=== PATIENT | male | born 1990 | race Caucasian/White ===

== ENCOUNTER 2018-04-03 22:07 | Emergency (ER) | payer SELFPAY ==
[2018-04-03 22:40] VITALS: BP 125/74
[2018-04-03 23:29] LABS: ABSOLUTE BASOPHILS # (AUTO) 0.1 10^3/uL (0.0-0.2); ABSOLUTE EOSINOPHILS # (AUTO) 0.2 10^3/uL (0.0-0.6); ABSOLUTE LYMPHOCYTES (AUTO) 3.1 10^3/uL (0.5-4.7); ABSOLUTE MONOCYTES (AUTO) 0.6 10^3/uL (0.1-1.4); ABSOLUTE NEUT (AUTO) 5.3 10^3/uL (1.7-8.2); BASOPHILS % (AUTO) 0.8 % (0-2); HEMATOCRIT 43.7 % (37.9-51.0); HEMOGLOBIN 15.5 g/dL (13.5-17.0); LYMPHOCYTES % (AUTO) 33.4 % (13-45); MEAN CORPUSCULAR HEMOGLOBIN 31.3 pg (27.0-33.4); MEAN CORPUSCULAR HGB CONC 35.5 g/dL (32.0-36.0); MEAN CORPUSCULAR VOLUME 88 fl (80-97); MONOCYTES % (AUTO) 6.7 % (3-13); PLATELET COUNT 202 10^3/uL (150-450); RED BLOOD COUNT 4.96 10^6/uL (4.35-5.55); RED CELL DISTRIBUTION WIDTH 12.8 % (11.5-14.0); SEGMENTED NEUTROPHILS % (AUTO) 57.1 % (42-78); TOTAL CELLS COUNTED % (AUTO) 100 %; WHITE BLOOD COUNT 9.3 10^3/uL (4.0-10.5)
[2018-04-03 23:30] LABS: APPEARANCE,URINE CLEAR; BILIRUBIN,URINE NEGATIVE (NEGATIVE); COLOR,URINE YELLOW; GLUCOSE, URINE NEGATIVE (NEGATIVE); KETONES,URINE NEGATIVE (NEGATIVE); LEUKOCYTE ESTERASE,URINE NEGATIVE (NEGATIVE); NITRITE,URINE NEGATIVE (NEGATIVE); PROTEIN,URINE NEGATIVE (NEGATIVE); URINE SPECIFIC GRAVITY 1.018; UROBILINOGEN,URINE NEGATIVE mg/dL (<2.0)
[2018-04-03 23:47] LABS: ALANINE AMINOTRANSFERASE 28 U/L (21-72); ALBUMIN 4.4 g/dL (3.5-5.0); ALKALINE PHOSPHATASE 73 U/L (38-126); ANION GAP 10 (5-19); ASPARTATE AMINO TRANSFERASE 24 U/L (17-59); BILIRUBIN,DIRECT 0.3 mg/dL (0.0-0.4); BILIRUBIN,TOTAL 0.5 mg/dL (0.2-1.3); BLOOD UREA NITROGEN 18 mg/dL (7-20); CALCIUM 9.8 mg/dL (8.4-10.2); CARBON DIOXIDE 28 mmol/L (22-30); CHLORIDE 106 mmol/L (98-107); GLUCOSE 107 mg/dL (75-110); LIPASE 84.8 U/L (23-300); POTASSIUM 3.8 mmol/L (3.6-5.0); SODIUM 143.8 mmol/L (137-145); TOTAL PROTEIN 7.3 g/dL (6.3-8.2)
== END 2018-04-04 01:00 | disposition left against medical advice (07) ==
LOC: ER 22:07
DX: Z53.21 Procedure and treatment not carried out due to patient leaving prior to being seen by health care provider (principal)
CPT/HCPCS: 36415; 80053; 81001; 83690; 85025

== ENCOUNTER 2018-04-06 22:16 | Emergency (ER) | payer SELFPAY ==
[2018-04-06] MEDS ORDERED: KETOROLAC TROMETHAMINE INJ/PF 30 MG/1 ML SDV IV ONE (22:48)
--- NOTE | 2018-04-06 22:50 | ER Document Report ---
ED GI/ - General Chief Complaint: Abdominal Pain Stated Complaint: FLANK PAIN Time Seen by Provider: 04/06/18 22:42 Notes: Patient is a 28-year-old male who comes emergency department for chief complaint of pain in his right lower abdomen. He states that he felt a popping sensation 2 nights ago, has had continuous pain in that location since, worse with movement, states that he had some loss of appetite but denies nausea or vomiting. Reports normal bowel movement within the past day. Denies fever or chills. Denies any surgeries or daily medications, denies any medical history. He smokes, drinks alcohol occasionally, uses marijuana. TRAVEL OUTSIDE OF THE [place] IN LAST 30 DAYS: No - Related Data Allergies/Adverse Reactions: No Known Allergies Allergy (Unverified 03/02/12 08:09) Past Medical History - General Information source: Patient - Social History Smoking Status: Current Every Day Smoker Smoking Education Provided: Yes - <3 min Frequency of alcohol use: Occasional Drug Abuse: Marijuana Lives with: Alone Family History: Reviewed & Not Pertinent Surgical Hx: Negative - Immunizations Hx Diphtheria, Pertussis, Tetanus Vaccination: Yes Review of Systems - Review of Systems Constitutional: No symptoms reported EENT: No symptoms reported Cardiovascular: No symptoms reported Respiratory: No symptoms reported Gastrointestinal: See HPI Genitourinary: No symptoms reported Male Genitourinary: No symptoms reported Musculoskeletal: No symptoms reported Skin: No symptoms reported Hematologic/Lymphatic: No symptoms reported Neurological/Psychological: No symptoms reported Physical Exam - Vital signs Vitals: Temp Pulse Resp BP Pulse Ox 99.0 F 80 18 121/64 96 04/06/18 22:24 04/06/18 22:24 04/06/18 22:24 04/06/18 22:24 04/06/18 22:24 - Notes Notes: GENERAL: Alert, interacts well. No acute distress. HEAD: Normocephalic, atraumatic. EYES: Pupils equal, round, and reactive to light. Extraocular movements intact. ENT: Oral mucosa moist, tongue midline. NECK: Full range of motion. Supple. Trachea midline. LUNGS: Clear to auscultation bilaterally, no wheezes, rales, or rhonchi. No respiratory distress. HEART: Regular rate and rhythm. No murmur ABDOMEN: Tenderness in the mid to lower right quadrant of the abdomen, this is reproducible, remaining abdomen is soft and benign EXTREMITIES: Moves all 4 extremities spontaneously. No edema, normal radial and dorsalis pedis pulses bilaterally. No cyanosis. BACK: no cervical, thoracic, lumbar midline tenderness. No saddle anesthesia, normal distal neurovascular exam. NEUROLOGICAL: Alert and oriented x3. Normal speech. [cranial nerves II through XII grossly intact]. PSYCH: Normal affect, normal mood. SKIN: Warm, dry, normal turgor. No rashes or lesions noted. Course - Re-evaluation Re-evalutation: Patient is well-appearing on exam. He does have lower abdominal tenderness specifically in the right lower abdomen, no overt abnormality including hernia noted, tenderness is reproducible. As result CAT scan will be performed with oral and IV contrast. CBC is unremarkable, chemistry shows elevated creatinine 1.53, otherwise unremarkable, urine does not show hematuria or other abnormality. Patient states that he has been drinking "almost exclusively soda", patient given IV fluids. CT showing bilateral small inguinal hernias with no incarceration or obstruction , normal appendix. This is consistent with patient's description of events and his symptoms as well as his exam. Examination does not suggest acute abdomen, patient is improved from before. Patient provided with copy of his report, referral, discussed smoking cessation, discussed follow-up, discussed return precautions. Patient states understanding and agreement with plan. - Vital Signs Vital signs: Temp Pulse Resp BP Pulse Ox 98.5 F 62 18 118/75 100 04/07/18 03:33 04/07/18 03:33 04/07/18 03:33 04/07/18 03:33 04/07/18 03:33 - Laboratory Result Diagrams: 04/06/18 22:35 04/06/18 22:35 Laboratory results interpreted by me: 04/06/18 22:35 Sodium 145.6 H Creatinine 1.53 H Est GFR (Non-Af Amer) 54 L Glucose 67 L Discharge - Discharge Clinical Impression: Abdominal pain Qualifiers: Abdominal location: lower abdomen, unspecified Qualified Code(s): R10.30 - Lower abdominal pain, unspecified Condition: Stable Disposition: HOME, SELF-CARE Additional Instructions: Your imaging and examination indicate your pain is from hernia, you actually have 2 small hernias, one on each side and the groin areas. Consider abdominal binder for lifting, stop smoking, follow-up with surgical referral for additional management. Your kidney functioning is a little abnormal today, you were given IV fluids, this needs to be rechecked by primary care. Improve hydration. Return if you worsen including severe pain, vomiting, fever, a hard swollen area in your groin, or any other concerning symptoms. Forms: Return to Work Referrals: [facility] [Provider Group] - Follow up as needed
[2018-04-06 22:53] LABS: ABSOLUTE BASOPHILS # (AUTO) 0.1 10^3/uL (0.0-0.2); ABSOLUTE EOSINOPHILS # (AUTO) 0.1 10^3/uL (0.0-0.6); ABSOLUTE LYMPHOCYTES (AUTO) 3.1 10^3/uL (0.5-4.7); ABSOLUTE MONOCYTES (AUTO) 0.7 10^3/uL (0.1-1.4); ABSOLUTE NEUT (AUTO) 5.9 10^3/uL (1.7-8.2); BASOPHILS % (AUTO) 0.7 % (0-2); EOSINOPHILS % (AUTO) 1.1 % (0-6); HEMATOCRIT 41.7 % (37.9-51.0); HEMOGLOBIN 14.9 g/dL (13.5-17.0); LYMPHOCYTES % (AUTO) 31.5 % (13-45); MEAN CORPUSCULAR HEMOGLOBIN 31.5 pg (27.0-33.4); MEAN CORPUSCULAR HGB CONC 35.7 g/dL (32.0-36.0); MEAN CORPUSCULAR VOLUME 88 fl (80-97); MONOCYTES % (AUTO) 7.1 % (3-13); PLATELET COUNT 197 10^3/uL (150-450); RED BLOOD COUNT 4.72 10^6/uL (4.35-5.55); RED CELL DISTRIBUTION WIDTH 12.6 % (11.5-14.0); SEGMENTED NEUTROPHILS % (AUTO) 59.6 % (42-78); TOTAL CELLS COUNTED % (AUTO) 100 %
[2018-04-06 22:59] LABS: APPEARANCE,URINE SLIGHTLY-CLOUDY; BILIRUBIN,URINE NEGATIVE (NEGATIVE); COLOR,URINE YELLOW; GLUCOSE, URINE NEGATIVE (NEGATIVE); KETONES,URINE NEGATIVE (NEGATIVE); LEUKOCYTE ESTERASE,URINE NEGATIVE (NEGATIVE); NITRITE,URINE NEGATIVE (NEGATIVE); PROTEIN,URINE NEGATIVE (NEGATIVE); URINE SPECIFIC GRAVITY 1.017; UROBILINOGEN,URINE NEGATIVE mg/dL (<2.0)
[2018-04-06 23:09] LABS: ALANINE AMINOTRANSFERASE 30 U/L (21-72); ALBUMIN 4.3 g/dL (3.5-5.0); ALKALINE PHOSPHATASE 53 U/L (38-126); ANION GAP 12 (5-19); ASPARTATE AMINO TRANSFERASE 27 U/L (17-59); BILIRUBIN,DIRECT 0.3 mg/dL (0.0-0.4); BILIRUBIN,TOTAL 0.6 mg/dL (0.2-1.3); BLOOD UREA NITROGEN 16 mg/dL (7-20); CALCIUM 9.5 mg/dL (8.4-10.2); CARBON DIOXIDE 27 mmol/L (22-30); CHLORIDE 107 mmol/L (98-107); GLUCOSE 67 mg/dL (75-110); LIPASE 62.7 U/L (23-300); SODIUM 145.6 mmol/L (137-145); TOTAL PROTEIN 7.1 g/dL (6.3-8.2)
--- NOTE | 2018-04-07 02:38 | RADIOLOGY REPORT (SQ) ---
EXAM DESCRIPTION: CT ABDOMEN PELVIS WITH IV CONTRAST COMPLETED DATE/TME: 04/07/2018 00:00 CLINICAL HISTORY: 28 years Male, RLQ pain Comparison: None. Technique: IV contrast and oral. Coronal and sagittal reformat. This exam was performed according to our departmental dose-optimization program, which includes automated exposure control, adjustment of the mA and/or kV according to patient size and/or use of iterative reconstruction technique.[facility]: Dose Right [facility]: CareDose [facility]: Dose Right [facility]: Teradose 4D [facility]: [employer] LIMITATIONS: None Findings: No ascites. Normal appendix. Small bilateral inguinal fat only hernia. Subcentimeter, likely benign left renal cysts. Inferior thorax, liver, gallbladder, pancreas, spleen, adrenals, renal system, gastrointestinal tract, pelvic organs, lymphatics, vasculature, and musculoskeleton appear otherwise unremarkable. IMPRESSION: No acute findings.
[2018-04-07] MEDS ORDERED: NORMAL SALINE 1000 ML 1,000 ML IV ONE (02:42)
[2018-04-07 03:34] VITALS: BP 118/75
== END 2018-04-07 03:35 | disposition home or self-care (01) ==
LOC: ER 22:16
DX: R10.31 Right lower quadrant pain (principal); R63.0 Anorexia; F17.200 Nicotine dependence, unspecified, uncomplicated
CPT/HCPCS: 99284; 96361; 96374; 36415; 83690; 85025; 80053; 81001; 74177; J1885; J7030

== ENCOUNTER 2018-06-12 10:17 | Emergency (ER) | payer SELFPAY ==
--- NOTE | 2018-06-12 10:36 | ER Document Report ---
ED Neuro Symptoms/Deficit - General Chief Complaint: Numbness Stated Complaint: CHEST PAIN Time Seen by Provider: 06/12/18 10:33 TRAVEL OUTSIDE OF THE [place] IN LAST 30 DAYS: No - Related Data Allergies/Adverse Reactions: No Known Allergies Allergy (Verified 06/12/18 10:17) Past Medical History - Social History Family History: Reviewed & Not Pertinent Renal/ Medical History: Denies: Hx Peritoneal Dialysis - Immunizations Hx Diphtheria, Pertussis, Tetanus Vaccination: Yes Physical Exam - Vital signs Vitals: Temp Pulse Resp BP Pulse Ox 98.1 F 96 16 142/78 H 98 06/12/18 10:25 06/12/18 10:25 06/12/18 10:25 06/12/18 10:25 06/12/18 10:25 Course - Vital Signs Vital signs: Temp Pulse Resp BP Pulse Ox 98.1 F 96 16 142/78 H 98 06/12/18 10:25 06/12/18 10:25 06/12/18 10:25 06/12/18 10:25 06/12/18 10:25
--- NOTE | 2018-06-12 10:38 | ER Document Report ---
ED Neuro Symptoms/Deficit - General Chief Complaint: Numbness Stated Complaint: CHEST PAIN Time Seen by Provider: 06/12/18 10:33 Notes: 28-year-old male to the emergency department with his sister. Sister states that he is altered this morning. Complaining of headache. Facial numbness. Extremity numbness. Not acting right. Denies any drug use other than "smoking weed man". States that he takes a lot of vitamins. Has been having headaches. Seems to be getting worse. Had some recent dental issues and was on some antibiotics but otherwise denies any other symptoms. Patient is sitting in chair almost falling over. Seems very sleepy. Sister is present with the patient and is crying and seems very disturbed by his presentation. Apparently this is not his baseline mental status. I have greeted and performed a rapid initial assessment of this patient. A comprehensive ED assessment and evaluation of the patient, analysis of test results and completion of the medical decision making process will be conducted by additional ED providers. TRAVEL OUTSIDE OF THE [place] IN LAST 30 DAYS: No - Related Data Allergies/Adverse Reactions: No Known Allergies Allergy (Verified 06/12/18 10:17) Past Medical History - Social History Smoking Status: Smoker,Current Status Unk Drug Abuse: Marijuana Family History: Reviewed & Not Pertinent Renal/ Medical History: Denies: Hx Peritoneal Dialysis - Immunizations Hx Diphtheria, Pertussis, Tetanus Vaccination: Yes Physical Exam - Vital signs Vitals: Temp Pulse Resp BP Pulse Ox 98.1 F 96 16 142/78 H 98 06/12/18 10:25 06/12/18 10:06/12/18 10:06/12/18 10:25 06/12/18 10:25 Course - Vital Signs Vital signs: Temp Pulse Resp BP Pulse Ox 98.1 F 96 16 142/78 H 98 06/12/18 10:25 06/12/18 10:25 06/12/18 10:25 06/12/18 10:25 06/12/18 10:25
--- NOTE | 2018-06-12 11:28 | RADIOLOGY REPORT (SQ) ---
EXAM DESCRIPTION: CT HEAD WITHOUT COMPLETED DATE/TIME: 06/12/2018 11:19 am REASON FOR STUDY: altered mental status, headache COMPARISON: None. TECHNIQUE: Axial images acquired through the brain without intravenous contrast. Images reviewed wi th bone, brain and subdural windows. Additional sagittal and coronal reconstructions were generated. Images stored on PACS. All CT scanners at this facility use dose modulation, iterative reconstruction, and/or weight based d osing when appropriate to reduce radiation dose to as low as reasonably achievable (ALARA). [facility]: Dose Right [facility]: CareDose [facility]: Dose Right [facility]: Teradose 4D [facility]: [email or web address] RADIATION DOSE: CT Rad equipment meets quality standard of care and radiation dose reduction techniq ues were employed. CTDIvol: 53.2 mGy. DLP: 1097 mGy-cm. mGy. LIMITATIONS: None. FINDINGS: VENTRICLES: Normal size and contour. CEREBRUM: No masses. No hemorrhage. No midline shift. No evidence for acute infarction. Normal gra y/white matter differentiation. No areas of low density in the white matter. CEREBELLUM: No masses. No hemorrhage. No alteration of density. No evidence for acute infarction. EXTRAAXIAL SPACES: No fluid collections. No masses. ORBITS AND GLOBE: No intra- or extraconal masses. Normal contour of globe without masses. CALVARIUM: No fracture. PARANASAL SINUSES: No fluid or mucosal thickening. SOFT TISSUES: No mass or hematoma. OTHER: No other significant finding. IMPRESSION: NORMAL BRAIN CT WITHOUT CONTRAST. EVIDENCE OF ACUTE STROKE: NO. COMMENT: Quality ID # [id number]: Final reports with documentation of one or more dose reduction techniques (e.g., Automated exposure control, adjustment of the mA and/or kV according to patient size, use of iterative reconstruction technique) TECHNICAL DOCUMENTATION: JOB ID: [id number] [employer]- All Rights Reserved Reading location - IP/workstation name: [email or web address]
[2018-06-12 11:35] LABS: VENOUS BLOOD BASE EXCESS 1.1 mmol/L; VENOUS BLOOD HCO3 27.4 mmol/L (20-32); VENOUS BLOOD PCO2 49.2 mmHg (35-63); VENOUS BLOOD PH 7.36 (7.30-7.42)
[2018-06-12 11:37] LABS: ABSOLUTE EOSINOPHILS # (AUTO) 0.1 10^3/uL (0.0-0.6); ABSOLUTE LYMPHOCYTES (AUTO) 2.6 10^3/uL (0.5-4.7); ABSOLUTE MONOCYTES (AUTO) 0.6 10^3/uL (0.1-1.4); ABSOLUTE NEUT (AUTO) 6.6 10^3/uL (1.7-8.2); BASOPHILS % (AUTO) 0.3 % (0-2); EOSINOPHILS % (AUTO) 1.4 % (0-6); HEMATOCRIT 44.6 % (37.9-51.0); HEMOGLOBIN 15.7 g/dL (13.5-17.0); LYMPHOCYTES % (AUTO) 26.3 % (13-45); MEAN CORPUSCULAR HEMOGLOBIN 30.9 pg (27.0-33.4); MEAN CORPUSCULAR HGB CONC 35.2 g/dL (32.0-36.0); MEAN CORPUSCULAR VOLUME 88 fl (80-97); MONOCYTES % (AUTO) 5.8 % (3-13); PLATELET COUNT 213 10^3/uL (150-450); RED BLOOD COUNT 5.07 10^6/uL (4.35-5.55); RED CELL DISTRIBUTION WIDTH 12.9 % (11.5-14.0); SEGMENTED NEUTROPHILS % (AUTO) 66.2 % (42-78); TOTAL CELLS COUNTED % (AUTO) 100 %
[2018-06-12] MEDS ORDERED: NORMAL SALINE 1000 ML 1,000 ML IV ONE ×2 (11:41→14:18)
--- NOTE | 2018-06-12 11:45 | ER Document Report ---
ED General - General Mode of Arrival: Ambulatory Information source: Patient TRAVEL OUTSIDE OF THE [place] IN LAST 30 DAYS: No <VENU KHALIL - Last Filed: 06/12/18 12:10> <JULIO CESAR DUARTE - Last Filed: 06/12/18 16:07> - General Chief Complaint: Numbness Stated Complaint: CHEST PAIN Time Seen by Provider: 06/12/18 10:33 Notes: Patient is a 28-year-old male presenting to the emergency department complaining of multiple symptoms. Patient states that he woke up this morning with a headache and states he has been waking up every morning with a headache which she takes Excedrin which makes his headache tolerable. States he woke up this morning earlier than normal and went back to bed because he was tired. He states when he laid down he felt a shock at the back of his head that radiated into back of his body and then his "body went into a panic mode". He states he does not normally have panic attacks. He further complains of mouth and hand numbness and weakness further stating "they do not want to work". He states he took Excedrin this morning so his headache is better at bedside. He denies any fevers. He also mentions left tooth pain which is exacerbated with cough and complains of pain behind his right hear for 1.5 weeks. He further reports having a cough and sinus infection for a while and reports is cough being dry now due to not coughing any sputum or having rhinorrhea. According to triage note, sister was at bedside earlier and was crying due to the patient appearing to be in an altered mental status. (VENU KHALIL) - Related Data Allergies/Adverse Reactions: No Known Allergies Allergy (Verified 06/12/18 10:17) Past Medical History - General Information source: Patient - Social History Smoking Status: Current Every Day Smoker Cigarette use (# per day): Yes Chew tobacco use (# tins/day): No Frequency of alcohol use: Occasional Drug Abuse: Marijuana Family History: Reviewed & Not Pertinent Patient has suicidal ideation: No Patient has homicidal ideation: No - Immunizations Hx Diphtheria, Pertussis, Tetanus Vaccination: Yes <VENU KHALIL - Last Filed: 06/12/18 12:10> Review of Systems - Review of Systems Constitutional: No symptoms reported EENT: See HPI, Dental problem Cardiovascular: No symptoms reported Respiratory: No symptoms reported Gastrointestinal: No symptoms reported Genitourinary: No symptoms reported Male Genitourinary: No symptoms reported Musculoskeletal: See HPI Skin: No symptoms reported Hematologic/Lymphatic: No symptoms reported Neurological/Psychological: See HPI, Weakness, Headaches, Numbness -: Yes All other systems reviewed and negative <SIMRANVENU DARLING - Last Filed: 06/12/18 12:10> Physical Exam <SIMRANVENU DARLING - Last Filed: 06/12/18 12:10> <JULIO CESAR DUARTE - Last Filed: 06/12/18 16:07> - Vital signs Vitals: Temp Pulse Resp BP Pulse Ox 98.1 F 96 16 142/78 H 98 06/12/18 10:25 06/12/18 10:25 06/12/18 10:25 06/12/18 10:25 06/12/18 10:25 - Notes Notes: GENERAL: Appears drowsy, arousable. No acute distress. HEAD: Normocephalic, atraumatic. No frontal tenderness to palpation. No facial weakness or asymmetry. EYES: Pupils equal, round, and reactive to light. Extraocular movements intact. ENT: Oral mucosa moist, tongue midline. Right and left lower third molar appear decayed with holes on the lateral aspect near gum line, tender to percussion, no gum edema. NECK: Full range of motion. Supple. Trachea midline. Able to place chin on chest , no reproducible pain with this movement. Posterior cervical muscles tender to palpation. Bilateral trapezius tender to palpation. LUNGS: Coarse breath sounds and rhonchi with cough. No respiratory distress. HEART: Regular rate and rhythm. No murmurs, gallops, or rubs. ABDOMEN: Soft, non-tender. Non-distended. Bowel sounds present in all 4 quadrants. EXTREMITIES: Moves all 4 extremities spontaneously. Initially had one foot under the other during examination. Able to uncross legs without difficulty. No edema, radial pulses 2/4 bilaterally. No cyanosis. NEUROLOGICAL: Alert and oriented x3. Normal speech. 5/5 presto log operator strength bilaterally. PSYCH: Normal affect, normal mood. SKIN: Warm, dry, normal turgor. No rashes or lesions noted. BACK: No scapular tenderness to palpation. (VENU KHALIL) Course - Laboratory Result Diagrams: 06/12/18 11:08 06/12/18 11:08 <VENU KHALIL - Last Filed: 06/12/18 12:10> - Laboratory Result Diagrams: 06/12/18 11:08 06/12/18 11:08 - Diagnostic Test Radiology reviewed: Image reviewed, Reports reviewed - CT scan of the head is unremarkable. <JULIO CESAR DUARTE - Last Filed: 06/12/18 16:07> - Re-evaluation Re-evalutation: 06/12/18 16:02 The patient recognizes that his urine was very dark and concentrated. He cannot explain that, as he states he drinks plenty of fluids all the time. At this time he states that his whole body feels heavy. 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 When asked why he was awake when the children should be asleep, he said there was a cat there that kept him awake. He also reports that he got back up about 7 AM. I have asked the patient to go home and drink plenty of fluids throughout the day and evening, and get plenty of sleep, then see how he feels, as there is no clear explanation for most of the symptoms he has right now. He still does have reproducible muscle tension type headaches with very tender bilateral posterior cervical muscles and trapezius muscles. There is no nuchal rigidity. (JULIO CESAR DUARTE) - Vital Signs Vital signs: Temp Pulse Resp BP Pulse Ox 98.1 F 88 13 145/81 H 99 06/12/18 10:25 06/12/18 14:42 06/12/18 14:42 06/12/18 14:42 06/12/18 14:42 - Laboratory Laboratory results interpreted by me: 06/12/18 06/12/18 11:08 13:15 Glucose 111 H Urine Ketones TRACE H Urine Ascorbic Acid 40 H Acetaminophen < 10 L Discharge <VENU KHALIL - Last Filed: 06/12/18 12:10> <JULIO CESAR DUARTE - Last Filed: 06/12/18 16:07> - Discharge Clinical Impression: Muscle tension headache, Dehydration Fatigue Qualifiers: Fatigue type: unspecified Qualified Code(s): R53.83 - Other fatigue Condition: Stable Disposition: HOME, SELF-CARE Additional Instructions: There was no clear explanation for your symptoms today except that you do seem to have a muscle tension type headache which is readily reproduced by palpating the posterior cervical neck muscles. Your urine was quite concentrated suggesting that you are not drinking enough fluids, despite, thinking that you have been drinking a lot. You do report that you were up quite late and got very little sleep before getting back up today. At this time, I would recommend that you continue to drink plenty of fluids throughout the day and evening, such that your urine is coming out very clear. Get plenty of sleep today. Follow-up with a primary care provider or return to the emergency room if you are not feeling better after getting plenty of sleep and drinking plenty of fluids. RETURN TO THE EMERGENCY ROOM IF ANY NEW OR WORSENING SYMPTOMS. Forms: Return to Work Scribe Attestation: 06/12/18 12:07 I personally performed the services described in the documentation, reviewed and edited the documentation which was dictated to the scribe in my presence, and it accurately records my words and actions. (JULIO CESAR DUARTE) Scribe Documentation - Scribe Written by Tawny:: Tawny Betts, 06/12/2018 11:56 acting as scribe for :: Moshe <VENU KHALIL - Last Filed: 06/12/18 12:10>
[2018-06-12 11:57] LABS: ALANINE AMINOTRANSFERASE 34 U/L (21-72); ALBUMIN 4.3 g/dL (3.5-5.0); ALKALINE PHOSPHATASE 81 U/L (38-126); ANION GAP 13 (5-19); ASPARTATE AMINO TRANSFERASE 28 U/L (17-59); BILIRUBIN,DIRECT 0.2 mg/dL (0.0-0.4); BILIRUBIN,TOTAL 0.2 mg/dL (0.2-1.3); BLOOD UREA NITROGEN 19 mg/dL (7-20); CARBON DIOXIDE 25 mmol/L (22-30); CHLORIDE 107 mmol/L (98-107); CREATINE KINASE 73 U/L (55-170); GLUCOSE 111 mg/dL (75-110); POTASSIUM 4.2 mmol/L (3.6-5.0); SALICYLATE 3.3 mg/dL (2.0-20.0); SODIUM 144.9 mmol/L (137-145); TOTAL PROTEIN 7.2 g/dL (6.3-8.2)
[2018-06-12 12:00] LABS: ACETAMINOPHEN < 10 ug/mL (10-30); ALCOHOL < 10 mg/dL (NONE DETECTED)
[2018-06-12 12:09] LABS: CREATINE KINASE MB < 0.22 ng/mL (<4.55); TROPONIN I < 0.012 ng/mL
--- NOTE | 2018-06-12 13:11 | EKG REPORT ---
SEVERITY:- BORDERLINE ECG - SINUS RHYTHM PROBABLE LEFT ATRIAL ABNORMALITY : Confirmed by: Hugo Roth MD 12-Jun-2018 13:10:18
[2018-06-12 13:31] LABS: APPEARANCE,URINE SLIGHTLY-CLOUDY; BILIRUBIN,URINE NEGATIVE (NEGATIVE); COLOR,URINE YELLOW; GLUCOSE, URINE NEGATIVE (NEGATIVE); KETONES,URINE TRACE mg/dL (NEGATIVE); LEUKOCYTE ESTERASE,URINE NEGATIVE (NEGATIVE); NITRITE,URINE NEGATIVE (NEGATIVE); PROTEIN,URINE NEGATIVE (NEGATIVE); URINE SPECIFIC GRAVITY 1.038; UROBILINOGEN,URINE NEGATIVE mg/dL (<2.0)
[2018-06-12 13:52] LABS: URINE AMPHETAMINES SCREEN NEGATIVE; URINE BARBITURATES SCREEN NEGATIVE; URINE BENZODIAZEPINES SCREEN NEGATIVE; URINE COCAINE SCREEN NEGATIVE; URINE MARIJUANA (THC) SCREEN UNCONFIRMED POSITIVE; URINE METHADONE SCREEN NEGATIVE; URINE PHENCYCLIDINE SCREEN NEGATIVE
[2018-06-12 16:42] VITALS: BP 126/73
== END 2018-06-12 16:42 | disposition home or self-care (01) ==
LOC: ER 10:17
DX: G44.209 Tension-type headache, unspecified, not intractable (principal); E86.0 Dehydration; R53.83 Other fatigue; R20.0 Anesthesia of skin; K08.9 Disorder of teeth and supporting structures, unspecified; F17.210 Nicotine dependence, cigarettes, uncomplicated
CPT/HCPCS: 93005; 99285; 96360; 96361; 36415; 82553; 80307 ×4; 82550; 85025; 80053; 81001; 84484; 82803; 70450; 93010; J7030

== ENCOUNTER 2020-01-25 13:48 | Emergency (ER) | payer SELFPAY ==
[2020-01-25] MEDS ORDERED: NORMAL SALINE 1000 ML 1,000 ML IV ONE (14:11)
--- NOTE | 2020-01-25 14:12 | ER Document Report ---
ED GI/ - General Chief Complaint: Abdominal Pain Stated Complaint: ABDOMINAL PAIN Time Seen by Provider: 01/25/20 13:58 Primary Care Provider: [facility] [Provider Group] - Follow up as needed [facility] [Provider Group] - Follow up as needed Mode of Arrival: Ambulatory Information source: Patient Notes: Patient presents complaining of abdominal pain for the past 3 days. Patient states that he previously was told he had a hernia and is uncertain if his abdominal pain may be due to hernia. Patient denies any abdominal bulging or masses to the abdomen. Patient denies any nausea vomiting or diarrhea. Patient denies any urinary symptoms. Patient complains of pain to the right lower quadrant in the lower left pelvic area. Patient denies any scrotal tenderness. TRAVEL OUTSIDE OF THE [place] IN LAST 30 DAYS: No - HPI Patient complains to provider of: Abdominal pain. No: Testicular pain, Vomiting Onset: Other - 3 days Timing/Duration: Worse Quality of pain: Burning Pain Level: 2 Location: RLQ, Pelvis Associated symptoms: denies: Diarrhea, Fever, Nausea, Urinary hesitancy, Urinary frequency, Urinary retention, Urinary urgency, Vomiting Exacerbated by: Movement Relieved by: Denies Similar symptoms previously: No Recently seen / treated by doctor: No - Related Data Allergies/Adverse Reactions: No Known Allergies Allergy (Verified 06/12/18 10:17) Past Medical History - General Information source: Patient - Social History Smoking Status: Current Every Day Smoker Frequency of alcohol use: None Drug Abuse: None Occupation: [employer] Family History: Reviewed & Not Pertinent Patient has suicidal ideation: No Patient has homicidal ideation: No - Medical History Medical History: Negative Renal/ Medical History: Denies: Hx Peritoneal Dialysis Surgical Hx: Negative - Immunizations Hx Diphtheria, Pertussis, Tetanus Vaccination: Yes Review of Systems - Review of Systems Constitutional: No symptoms reported. denies: Fever, Recent illness EENT: No symptoms reported Cardiovascular: No symptoms reported Respiratory: No symptoms reported. denies: Cough, Short of breath Gastrointestinal: Abdominal pain. denies: Diarrhea, Nausea, Vomiting Genitourinary: No symptoms reported. denies: Dysuria, Flank pain Male Genitourinary: No symptoms reported Musculoskeletal: No symptoms reported. denies: Back pain Skin: No symptoms reported Hematologic/Lymphatic: No symptoms reported Neurological/Psychological: No symptoms reported Physical Exam - Vital signs Vitals: Temp Pulse Resp BP Pulse Ox 98.3 F 63 20 123/75 97 01/25/20 13:52 01/25/20 13:52 01/25/20 13:52 01/25/20 13:52 01/25/20 13:52 - General General appearance: Appears well, Alert In distress: None - HEENT Head: Normocephalic, Atraumatic Eyes: Normal Conjunctiva: Normal Nasal: Normal Mouth/Lips: Normal Neck: Normal, Supple - Respiratory Respiratory status: No respiratory distress Chest status: Nontender Breath sounds: Normal. No: Rales, Rhonchi, Stridor, Wheezing Chest palpation: Normal - Cardiovascular Rhythm: Regular Heart sounds: S1 appreciated, S2 appreciated - Abdominal Inspection: Normal, Other - No hernia noted Distension: No distension Bowel sounds: Normal Tenderness: Tender - RLQ, L lower pelvic, Guarding Organomegaly: No organomegaly - Back Back: Normal, Nontender. No: CVA tenderness - Extremities General upper extremity: Normal inspection, Normal strength General lower extremity: Normal inspection, Normal strength - Neurological Neuro grossly intact: Yes Cognition: Normal Violet Coma Scale Eye Opening: Spontaneous Violet Coma Scale Verbal: Oriented Rumford Coma Scale Motor: Obeys Commands Violet Coma Scale Total: 15 - Psychological Associated symptoms: Normal affect, Normal mood - Skin Skin Temperature: Warm Skin Moisture: Dry Skin Color: Normal Course - Re-evaluation Re-evalutation: 01/25/20 16:29 Patient continues with mild tenderness in the right lower quadrant. CT scan reviewed, no acute appendicitis, no inflammatory bowel findings. Patient with no leukocytosis or fever. Patient presents with abdominal pain without signs of peritonitis or other life-threatening or serious etiology. Patient appears stable for discharge and has been instructed to return immediately if the symptoms worsen in any way. - Vital Signs Vital signs: Temp Pulse Resp BP Pulse Ox 98.3 F 81 18 106/69 100 01/25/20 16:46 01/25/20 16:46 01/25/20 16:46 01/25/20 16:46 01/25/20 16:46 - Laboratory Result Diagrams: 01/25/20 14:35 01/25/20 14:35 Laboratory results interpreted by me: Labs- Entire Visit 01/25/20 01/25/20 01/25/20 14:35 14:35 14:35 WBC 9.8 RBC 4.78 Hgb 15.4 Hct 43.0 MCV 90 MCH 32.1 MCHC 35.7 RDW 12.7 Plt Count 212 Lymph % (Auto) 18.0 [place] % (Auto) 6.5 Eos % (Auto) 1.4 Baso % (Auto) 0.7 Absolute Neuts (auto) 7.2 Absolute Lymphs (auto) 1.8 Absolute Monos (auto) 0.6 Absolute Eos (auto) 0.1 Absolute Basos (auto) 0.1 Seg Neutrophils % 73.4 Sodium 138.0 Potassium 4.3 Chloride 103 Carbon Dioxide 30 Anion Gap 5 BUN 19 Creatinine 0.81 Est GFR ( Amer) > 60 Est GFR (MDRD) Non-Af > 60 Glucose 96 Calcium 9.7 Total Bilirubin 0.4 Direct Bilirubin 0.0 Neonat Total Bilirubin Not Reportable Neonat Direct Bilirubin Not Reportable Neonat Indirect Bili Not Reportable AST 35 ALT 29 Alkaline Phosphatase 77 Total Protein 7.2 Albumin 4.4 Urine Color STRAW Urine Appearance CLEAR Urine pH 7.0 Ur Specific [place] 1.008 Urine Protein NEGATIVE Urine Glucose (UA) NEGATIVE Urine Ketones NEGATIVE Urine Blood NEGATIVE Urine Nitrite NEGATIVE Urine Bilirubin NEGATIVE Urine Urobilinogen NEGATIVE Ur Leukocyte Esterase NEGATIVE Urine WBC (Auto) 0 Urine RBC (Auto) 0 Squamous Epi Cells Auto <1 Urine Mucus (Auto) RARE Urine Ascorbic Acid NEGATIVE - Diagnostic Test Radiology reviewed: Image reviewed, Reports reviewed Discharge - Discharge Clinical Impression: Abdominal pain Qualifiers: Abdominal location: unspecified location Qualified Code(s): R10.9 - Unspecified abdominal pain Condition: Stable Disposition: HOME, SELF-CARE Instructions: Abdominal Pain ([facility]), Antispasmodics ([facility]) Additional Instructions: Return immediately for any new or worsening symptoms: Fever, worsening pain, vomiting or any concerning new symptoms Followup with your primary care provider, call tomorrow to make a followup appointment Increase oral fluids and stay well-hydrated Prescriptions: Dicyclomine HCl [Bentyl 20 mg Tablet] 20 mg PO QID PRN #12 tablet PRN Reason: Polyethylene Glycol 3350 [Miralax] 17 gm PO DAILY #119 powder Referrals: [facility] [Provider Group] - Follow up as needed [facility] [Provider Group] - Follow up as needed
[2020-01-25 14:51] LABS: ABSOLUTE BASOPHILS # (AUTO) 0.1 10^3/uL (0.0-0.2); ABSOLUTE EOSINOPHILS # (AUTO) 0.1 10^3/uL (0.0-0.6); ABSOLUTE LYMPHOCYTES (AUTO) 1.8 10^3/uL (0.5-4.7); ABSOLUTE MONOCYTES (AUTO) 0.6 10^3/uL (0.1-1.4); ABSOLUTE NEUT (AUTO) 7.2 10^3/uL (1.7-8.2); APPEARANCE,URINE CLEAR; BASOPHILS % (AUTO) 0.7 % (0-2); BILIRUBIN,URINE NEGATIVE (NEGATIVE); COLOR,URINE STRAW; EOSINOPHILS % (AUTO) 1.4 % (0-6); GLUCOSE, URINE NEGATIVE (NEGATIVE); HEMOGLOBIN 15.4 g/dL (13.5-17.0); KETONES,URINE NEGATIVE (NEGATIVE); LEUKOCYTE ESTERASE,URINE NEGATIVE (NEGATIVE); MEAN CORPUSCULAR HEMOGLOBIN 32.1 pg (27.0-33.4); MEAN CORPUSCULAR HGB CONC 35.7 g/dL (32.0-36.0); MEAN CORPUSCULAR VOLUME 90 fl (80-97); MONOCYTES % (AUTO) 6.5 % (3-13); NITRITE,URINE NEGATIVE (NEGATIVE); PLATELET COUNT 212 10^3/uL (150-450); PROTEIN,URINE NEGATIVE (NEGATIVE); RED BLOOD COUNT 4.78 10^6/uL (4.35-5.55); RED CELL DISTRIBUTION WIDTH 12.7 % (11.5-14.0); SEGMENTED NEUTROPHILS % (AUTO) 73.4 % (42-78); TOTAL CELLS COUNTED % (AUTO) 100 %; URINE SPECIFIC GRAVITY 1.008; UROBILINOGEN,URINE NEGATIVE mg/dL (<2.0); WHITE BLOOD COUNT 9.8 10^3/uL (4.0-10.5)
[2020-01-25 15:15] LABS: ALBUMIN 4.4 g/dL (3.5-5.0); ALKALINE PHOSPHATASE 77 U/L (38-126); ASPARTATE AMINO TRANSFERASE 35 U/L (17-59); BILIRUBIN,TOTAL 0.4 mg/dL (0.2-1.3); BLOOD UREA NITROGEN 19 mg/dL (7-20); CALCIUM 9.7 mg/dL (8.4-10.2); GLUCOSE 96 mg/dL (75-110); POTASSIUM 4.3 mmol/L (3.6-5.0); TOTAL PROTEIN 7.2 g/dL (6.3-8.2)
[2020-01-25 15:20] LABS: ANION GAP 5 (5-19); CARBON DIOXIDE 30 mmol/L (22-30); CHLORIDE 103 mmol/L (98-107)
--- NOTE | 2020-01-25 16:00 | RADIOLOGY REPORT (SQ) ---
EXAM DESCRIPTION: CT ABD/PELVIS WITH IV ONLY IMAGES COMPLETED DATE/TIME: 01/25/2020 3:51 pm REASON FOR STUDY: RLQ pain COMPARISON: None. TECHNIQUE: CT scan of the abdomen and pelvis performed using helical scanning technique with dynamic intravenous contrast injection. No oral contrast. Images reviewed with lung, soft tissue, and bone windows. Reconstructed coronal and sagittal MPR images reviewed. Delayed images for evaluation of the urinary system also acquired. All images stored on PACS. All CT scanners at this facility use dose modulation, iterative reconstruction, and/or weight based d osing when appropriate to reduce radiation dose to as low as reasonably achievable (ALARA). [facility]: Dose Right [facility]: CareDose [facility]: Dose Right [facility]: Teradose 4D [facility]: [employer] Systems CONTRAST TYPE AND DOSE: contrast/concentration: Isovue 350.00 mg/ml; Total Contrast Delivered: 87.0 ml; Total Saline Delivered: 69.0 ml RENAL FUNCTION: None required. The patient is less than 50 years old. RADIATION DOSE: CT Rad equipment meets quality standard of care and radiation dose reduction techniq ues were employed. CTDIvol: 5.9 - 8.0 mGy. DLP: 760 mGy-cm.. LIMITATIONS: None. FINDINGS: LOWER CHEST: No significant findings. No nodules or infiltrates. LIVER: Normal size. No masses. No dilated ducts. SPLEEN: Normal size. No focal lesions. PANCREAS: No masses. No significant calcifications. No adjacent inflammation or peripancreatic fluid collections. Pancreatic duct not dilated. GALLBLADDER: No identified stones by CT criteria. No inflammatory changes to suggest cholecystitis. ADRENAL GLANDS: No significant masses or asymmetry. RIGHT KIDNEY AND URETER: No solid masses. No significant calcifications. No hydronephrosis or hyd roureter. LEFT KIDNEY AND URETER: No solid masses. No significant calcifications. No hydronephrosis or hydr oureter. AORTA AND VESSELS: No aneurysm. No dissection. Renal arteries, SMA, celiac without stenosis. RETROPERITONEUM: No retroperitoneal adenopathy, hemorrhage or masses. BOWEL AND PERITONEAL CAVITY: No masses or inflammatory changes. No free fluid or peritoneal masses. APPENDIX: Normal. PELVIS: No mass. No free fluid. Normal bladder. ABDOMINAL WALL: No masses. No hernias. BONES: No significant or acute findings. OTHER: No other significant finding. IMPRESSION: NO SIGNIFICANT OR ACUTE FINDING IN THE ABDOMEN OR PELVIS ON CT SCAN WITH IV CONTRAST. TECHNICAL DOCUMENTATION: JOB ID: [id number] Quality ID # [id number]: Final reports with documentation of one or more dose reduction techniques (e.g., Au tomated exposure control, adjustment of the mA and/or kV according to patient size, use of iterative reconstruction technique) 2010 [employer]- All Rights Reserved Reading location - IP/workstation name: [email or web address]
[2020-01-25] MEDS ORDERED: DICYCLOMINE HCL 20 MG TABLET PO ONE (16:29)
[2020-01-25 16:58] VITALS: BP 106/69
== END 2020-01-25 16:59 | disposition home or self-care (01) ==
LOC: ER 13:48
DX: R10.31 Right lower quadrant pain (principal); F17.200 Nicotine dependence, unspecified, uncomplicated
CPT/HCPCS: 99284; 96360; 96361; 36415; 85025; 80053; 81001; 74177; J3490; J7030

== ENCOUNTER 2020-09-27 20:28 | Emergency (ER) | payer SELFPAY ==
--- NOTE | 2020-09-27 23:13 | ER Document Report ---
HPI - HPI Time Seen by Provider: 09/27/20 22:46 Pain Level: Denies Context: Patient is a 30-year-old male who comes emergency department for chief complaint of 2 days of symptoms of losing his sense of smell and losing his taste. He states this is very specific, he states he cannot smell or taste anything. He denies congestion, cough, sore throat, fever/chills, nausea/vomiting, headache, chest pain, or any other complaints. He states he works at [employer] and has been exposed to other people are positive for COVID-19. He smokes but he denies any diagnosed medical history or daily medications. - REPRODUCTIVE Reproductive: DENIES: : Past Medical History - General Information source: Patient - Social History Smoking Status: Current Every Day Smoker Chew tobacco use (# tins/day): No Smoking Education Provided: Yes - <3 min Frequency of alcohol use: Occasional Drug Abuse: Marijuana Lives with: Family Family History: Reviewed & Not Pertinent Renal/ Medical History: Denies: Hx Peritoneal Dialysis - Immunizations Hx Diphtheria, Pertussis, Tetanus Vaccination: Yes Vertical Provider Document - CONSTITUTIONAL General Appearance: WD/WN - INFECTION CONTROL TRAVEL OUTSIDE OF THE [place] IN LAST 30 DAYS: No - HEENT HEENT: Atraumatic, Normal ENT Exam, Normocephalic - NECK Neck: Normal Inspection - RESPIRATORY Respiratory: Breath Sounds Normal, No Respiratory Distress - CARDIOVASCULAR Cardiovascular: Regular Rate, Regular Rhythm - GI/ABDOMEN Gastrointestinal: Abdomen Soft, Abdomen Non-Tender. negative: Abdomen Tender - BACK Back: Normal Inspection - MUSCULOSKELETAL/EXTREMETIES Musculoskeletal/Extremeties: MAEW, FROM, Non-Tender - NEURO Level of Consciousness: Awake, Alert, Appropriate Motor/Sensory: No Motor Deficit, No Sensory Deficit - DERM Integumentary: Warm, Dry, No Rash Course - Re-evaluation Re-evalutation: Patient's physical exam is completely unremarkable. He is alert and well- appearing. Lungs clear. Vital signs unremarkable. Because of his symptoms he will be tested for COVID-19 and he was provided with work release, discussed quarantine, discussed return precautions. Patient states understanding and agreement. - Vital Signs Vital signs: Temp Pulse Resp BP Pulse Ox 98.1 F 68 16 119/67 99 09/27/20 20:43 09/27/20 20:43 09/27/20 20:43 09/27/20 20:43 09/27/20 20:43 - Laboratory Results Critical Laboratory Results Reviewed: No Critical Results - Radiology Results Critical Radiology Results Reviewed: No Critical Results Discharge - Discharge Clinical Impression: Loss of taste, Loss of smell, Person under investigation for COVID-19 Condition: Stable Disposition: HOME, SELF-CARE Instructions: COVID-19 Guidance for Persons Under Investigation Additional Instructions: Based on your symptoms I suspect that you have the virus COVID-19. You have been tested for this. Please quarantine while you are awaiting results, you will be contacted with your results. See additional instructions listed. Return for any concerning symptoms including difficulty breathing, chest pain, or any other concerning or worsening symptoms. Forms: Return to Work
[2020-09-27 23:33] VITALS: BP 105/79
== END 2020-09-27 23:33 | disposition home or self-care (01) ==
LOC: ER 20:28
DX: U07.1 COVID-19 (principal); F17.200 Nicotine dependence, unspecified, uncomplicated
CPT/HCPCS: 99283; 87635; C9803